=== PATIENT | female | born 1970 | race Caucasian/White ===

== ENCOUNTER 2019-06-13 08:38 | Outpatient (CLI) | payer OTHER ==
--- NOTE | 2019-06-13 10:14 | RAD ---
ABDOMEN 1 VIEW: Date: 06/13/19 INDICATION: Abdominal pain. No prior comparison. FINDINGS: There is a large volume of retained fecal material of the right hemicolon. Bowel gas pattern is nonob structed. The upper abdomen is excluded from view, limiting assessment in this regard. No acute osseo us pathology is seen. No discrete evidence of suspicious calcification overlying the imaged abdomen o r pelvis. IMPRESSION: Prominent volume of retained fecal material notably at the right hemicolon indicating constipation. POS: C
== END 2019-06-13 08:39 | disposition home or self-care (01) ==
LOC: RAD-FRANK 08:38
PROVIDERS: ATTEND Nurse Practitioner Family
DX: R10.84 Generalized abdominal pain (principal); K59.00 Constipation, unspecified
CPT/HCPCS: 74018

== ENCOUNTER 2023-06-06 13:12 | Outpatient (CLI) | payer OTHER | END 2023-06-06 13:13 | disposition home or self-care (01) | LOC: RAD-FRANK 13:12 | PROVIDERS: ATTEND Nurse Practitioner Family | DX: R05.1 Acute cough (principal) | CPT/HCPCS: 71046 ==

== ENCOUNTER 2024-02-09 06:39 | Day surgery (SDC) | payer OTHER ==
[2024-02-08 09:08] VITALS: BMI 34.0
[~2024-02-09 06:39] MED LIST: EPINEPHrine 0.3 MG in Ophthalmic Irrigation Solution 500 ML IRR SCH
[2024-02-09] MEDS ORDERED: PHENYLephrine 2.5% Ophth Soln 15 ml Bottle ONE (07:10)
[2024-02-09] MEDS ORDERED: Cyclopentolate 1% Opth Drop 2 ML BOT ONE (07:11)
[2024-02-09] MEDS ORDERED: Midazolam HCl 2 mg/2 ml Vial ONE (07:45)
[2024-02-09] MEDS ORDERED: fentaNYL 50 mcg/mL 1 mL Vial ONE ×2 (07:48→07:54)
[2024-02-09] MEDS ORDERED: Dexamethasone 4 mg/ml Vial ONE (08:18)
== END 2024-02-09 09:05 | disposition home or self-care (01) ==
LOC: SDC 06:39
PROVIDERS: ATTEND Ophthalmology Retina Specialist
PROC: 08T53ZZ Resection of Left Vitreous, Percutaneous Approach (ICD-10-PCS; principal; 2024-02-09)
DX: H43.312 Vitreous membranes and strands, left eye (principal)
CPT/HCPCS: J0171; J1100; J2250; J3010